=== PATIENT | male | born 1975 ===

== ENCOUNTER 2023-08-14 13:30 | Emergency (ER) | payer OTHER, SELFPAY ==
[2023-08-14] VITALS (8 sets, daily range): BP systolic 132–149; BP diastolic 87–91; PULSE 58–72; RESP 14–16; TEMP 36.1; O2SAT 95–97; BMI 35.9
[2023-08-14 14:13] LABS: Troponin, Point-of-Care* 0.01 ng/ml (0.01-0.04)
--- NOTE | 2023-08-14 15:06 | ED.CHESTPAIN ---
HPI - Chest Pain General Chief Complaint: Chest Pain Stated Complaint: Chest pain Time Seen by Provider: 08/14/23 14:08 History of Present Illness HPI narrative: This 48-year-old male comes in reporting episodes of chest discomfort that occurred on and off over the past urine half. He has thought it was heartburn symptoms or anxiety symptoms as he knows that he has both of these. He is taking medicine for reflux symptoms and is on an antianxiety medicine. He states that he has good exercise tolerance. These symptoms seem to come and go randomly. He feels pain sometimes just right of the sternal border. He does not have any associated nausea, vomiting, lightheadedness, shortness of breath, or diaphoresis. He is taking a medicine for blood pressure and states that he does smoke but he is trying to cut down. He does not have any other known cardiac risk factors. Related Data Home Medications Medication Instructions Recorded Confirmed esomeprazole magnesium 40 mg 40 mg PO DAILY 08/14/23 08/14/23 capsule,delayed release (Nexium) lisinopril 10 mg tablet 10 mg PO DAILY 08/14/23 08/14/23 Allergies Allergy/AdvReac Type Severity Reaction Status Date / Time Penicillins Allergy Unknown Rash Verified 08/14/23 13:50 Review of Systems Status of ROS Reports: 10 or more systems reviewed and unremarkable except as noted in History and below Narrative Constitutional: No fevers, no weight gain or loss. Eyes: No discharge. No vision changes. HENT: No congestion, no sore throat, no ear pain. Cardiovascular: No palpitations. Chest discomfort as described above. Respiratory: No shortness of breath, no wheezes, no cough. Gastrointestinal: No abdominal pain, no vomiting, no diarrhea. Genitourinary: No dysuria, no hematuria. Musculoskeletal: Normal range of motion. Skin: No rashes, no pruritis. Neurological: No dizziness, weakness, sensory change, speech change. Endo/Heme/Allergies: No bruising or bleeding. No polydipsia. Pysch: no suicidality, no anxiety, no insomnia. All other systems reviewed and are negative. [facility] Social History Smoking Status: Current every day smoker What tobacco products do you use: cigarettes Smoking packs per day: 0.5 Smoking cigarettes per day: 10.0 Do you use any of these nicotine containing products: None Second hand tobacco smoke exposure: No How often do you have a drink containing alcohol: monthly or less AUDIT-C Alcohol total score: 1 Non-prescribed substance use: denies use service: No Exam Narrative Exam Narrative: Constitutional: Well-developed, well-nourished, no acute distress. HEENT: Normocephalic, atraumatic. Neck: Normal range of motion. Nontender. Supple. Heart: Regular. No murmurs. Normal rate. Intact distal pulses. Lungs: Clear to auscultation. No chest discomfort. No wheezes, rhonchi, or rales. Abdomen: Normal bowel sounds. Nontender. No rebound tenderness. Genitalia: Deferred. Back: No midline tenderness. Normal range of motion. Extremities: Normal range of motion. No injury. Skin: Intact. No rash. Warm. No erythema or pallor. Neurologic: No altered sensation. No weakness. Alert and oriented. Psychiatric: No suicidality. No depression. No insomnia. He reports anxiety symptoms but does not appear anxious. Nursing notes and vitals signs are reviewed. Const Vital Signs, click to edit/add: Vital Signs - 24 hr 08/14/23 13:43 08/14/23 14:00 08/14/23 14:01 Temperature 96.9 F L Pulse Rate 64 64 Pulse Rate [Pulse Oximeter] 72 Respiratory Rate 14 Blood Pressure 141/91 H Blood Pressure [Right Upper Arm] 149/89 H Pulse Oximetry 97 97 96 Oxygen Delivery Method Room Air 08/14/23 14:02 08/14/23 14:15 08/14/23 14:30 Temperature Pulse Rate 64 61 58 L Pulse Rate [Pulse Oximeter] Respiratory Rate Blood Pressure Blood Pressure [Right Upper Arm] Pulse Oximetry 97 97 96 Oxygen Delivery Method 08/14/23 14:31 08/14/23 14:45 Temperature Pulse Rate 59 L 64 Pulse Rate [Pulse Oximeter] Respiratory Rate 16 Blood Pressure 132/87 Blood Pressure [Right Upper Arm] Pulse Oximetry 95 97 Oxygen Delivery Method Course Vital Signs Vital signs: Initial Vital Signs Temperature 96.9 F L 08/14/23 13:43 Temperature Source Temporal Artery Scan 08/14/23 13:43 Pulse Rate 72 08/14/23 13:43 Pulse Rhythm Regular 08/14/23 13:43 Respiratory Rate 14 08/14/23 13:43 Blood Pressure 149/89 H 08/14/23 13:43 Blood Pressure Mean 109 H 08/14/23 13:43 Blood Pressure Position Sitting 08/14/23 13:43 Pulse Oximetry 97 08/14/23 13:43 Oxygen Delivery Method Room Air 08/14/23 13:43 Vital Signs Temperature 96.9 F L 08/14/23 13:43 Pulse Rate 72 08/14/23 13:43 Respiratory Rate 14 08/14/23 13:43 Blood Pressure 149/89 H 08/14/23 13:43 Pulse Oximetry 97 08/14/23 13:43 Oxygen Delivery Method Room Air 08/14/23 13:43 Temperature 96.9 F L 08/14/23 13:43 Pulse Rate 64 08/14/23 14:45 Respiratory Rate 16 08/14/23 14:31 Blood Pressure 132/87 08/14/23 14:31 Pulse Oximetry 97 08/14/23 14:45 Oxygen Delivery Method Room Air 08/14/23 13:43 MDM - Chest Pain MDM Narrative Medical decision making narrative: This patient comes in reporting random episodes of chest discomfort as described above. He does not report any exercise intolerance. He states that he gets some shortness of breath as would be expected with enough exertion but denies having any chest pain when doing so. His EKG today shows normal sinus rhythm without any ST or T-wave abnormalities. Troponin point of care returns at 0. He does have a risk factor of smoking and is treating his hypertension. I discussed other lab and imaging options which the patient declined at this time. I did indicate the importance of considering a stress test. The patient states that he has had a stress test in the past but it was stopped because his blood pressure was elevated as he had not taken his blood pressure medicine that day. This patient is okay to be discharged home. I advised him to follow-up with his primary physician to consider stress testing. He should return if symptoms recurrent or worsening. Lab Data Labs: Lab Results 08/14/23 Range/Units 14:11 POC Troponin I 0.01 (0.01-0.04) ng/ml ECG Data Attestation: I personally reviewed and interpreted this ECG as follows: Interpretation: Normal sinus rhythm. Rate is 67 beats per minute. There are no ST or T-wave abnormalities. Discharge Plan Discharge Clinical Impression: Atypical chest pain Patient Disposition: Home, Self-Care Condition: Stable Additional Instructions: Continue current plans. Smoking cessation is advised. Follow-up with primary physician to consider stress testing. Return if symptoms are worsening. Prescriptions: No Action lisinopril 10 mg tablet 10 mg PO DAILY esomeprazole magnesium [Nexium] 40 mg capsule,delayed release(DR/EC) 40 mg PO DAILY Follow Up/Referrals: Provider,Not a Local [Primary Care Provider] - Stand Alone Forms: [employer] Direct Info Instructions
== END 2023-08-14 15:21 | disposition home or self-care (01) ==
PROVIDERS: Emergency Provider Emergency Medicine Emergency Medical Services
DX: R07.89 Other chest pain (principal)
CPT/HCPCS: 84484; 93005; 99284